=== PATIENT | male | born 1960 | race Caucasian/White ===

== ENCOUNTER 2019-11-13 17:43 | Emergency (ER) | payer MEDICAID ==
[~2019-11-13] VITALS: Ht 172.7 cm; Wt 54.4 kg
[2019-11-13 17:49] VITALS: BP 151/102
[2019-11-13 18:17] LABS: Basophils # (auto) 0.1 10 ^3/uL (0-0.2); Basophils % (auto) 1.4 % (0.0-2.0); Eosinophils # (auto) 0.1 10 ^3/uL (0-0.8); Eosinophils % (auto) 1.2 % (0.0-7.0); Hemoglobin 13.1 g/dL (13.5-17.5); Lymphocytes # (auto) 1.1 10 ^3/uL (0.4-5.4); Lymphocytes % (auto) 19.9 % (10.0-50.0); Mean Corpuscular Hemoglobin 31.8 pg (28.0-32.0); Mean Corpuscular Hgb Conc. 34.5 g/dL (32.0-36.0); Mean Corpuscular Volume 92.4 fL (80.0-100.0); Monocytes # (auto) 0.4 10 ^3/uL (0-1.3); Monocytes % (auto) 7.8 % (0.0-12.0); Neutrophils # (auto) 3.9 10 ^3/uL (1.6-8.6); Neutrophils % (auto) 69.7 % (37.0-80.0); Nucleated Red Blood Cells % 0.1 %; Platelet Count (auto) 286 10^3/uL (140-450); Red Blood Cells 4.11 10^6/uL (4.5-5.90); Red Cell Distribution Width 13.5 % (11.8-14.3); White Blood Cell 5.6 10^3/uL (4.4-10.8)
[2019-11-13] MEDS ORDERED: cefTRIAXone 1GM/50ML D5W 50 ML IV ONE (18:30)
[2019-11-13] MEDS ORDERED: SODIUM CHLORIDE 0.9% 1,000 ML IV ONE (18:30)
[2019-11-13 18:33] LABS: Alanine Aminotransferase 19 U/L (16-61); Anion Gap 3 (5-15); Aspartate Aminotransferase 5 U/L (15-37); BUN/Creatinine Ratio 9.8; Blood Urea Nitrogen 12 mg/dL (7-18); Calcium 8.4 mg/dL (8.5-10.1); Carbon Dioxide 30 mmol/L (21-32); Chloride 105 mmol/L (98-107); GFR African American 79 mL/min; GFR Non-African American 65 mL/min; Glucose 274 mg/dL (74-106); Potassium 4.5 mmol/L (3.5-5.1); Sodium 138 mmol/L (136-145)
[2019-11-13 18:37] LABS: Alkaline Phosphatase 150 U/L (45-117); Bilirubin, Total 0.6 mg/dL (0.2-1.0); Total Protein 6.1 g/dL (6.4-8.2)
[2019-11-13] MEDS ORDERED: IPRATROPIUM BROM 0.5 MG/2.5ML INH SOL NEB ONE (19:00)
[2019-11-13] MEDS ORDERED: ALBUTEROL SULF 2.5 MG/0.5ML(0.5%) NEB SOLN NEB ONE (19:00)
[2019-11-13] MEDS ORDERED: cefTRIAXone W LIDOCAINE 1 GM IM IM ONE (20:15)
[2019-11-22] MEDS ORDERED: FURO40TA4 PO (13:56)
[2019-11-22] MEDS ORDERED: FAM20T PO (13:56)
[2019-11-22] MEDS ORDERED: LEVO750T2 PO (13:56)
[2019-11-22] MEDS ORDERED: MET25T PO (13:56)
[2019-11-22] MEDS ORDERED: SACU1TAB PO (13:56)
[2019-11-22] MEDS ORDERED: ASP81EC PO (13:56)
[2019-11-22] MEDS ORDERED: NICO14DI9 TD (13:56)
[2019-11-23] MEDS ORDERED: NIC21P TOP (16:01)
== END 2019-11-13 20:58 | disposition home or self-care (01) ==
LOC: ER 17:54
DX: J18.9 Pneumonia, unspecified organism (principal); J20.9 Acute bronchitis, unspecified; J44.0 Chronic obstructive pulmonary disease with (acute) lower respiratory infection; S80.812A Abrasion, left lower leg, initial encounter; E11.9 Type 2 diabetes mellitus without complications; E78.5 Hyperlipidemia, unspecified; I10 Essential (primary) hypertension; X58.XXXA Exposure to other specified factors, initial encounter; Y93.89 Activity, other specified; Y92.89 Other specified places as the place of occurrence of the external cause; Y99.8 Other external cause status
CPT/HCPCS: 36415; 71045; 80053; 83880; 84484; 85025; 87040; 93005; 94640; 99285; J0696; J7644

== ENCOUNTER 2019-11-18 11:34 | Inpatient (IN) | payer MEDICAID ==
[~2019-11-18] VITALS: Ht 172.7 cm; Wt 58.3 kg
[2019-11-18] MEDS ORDERED: SODIUM CHLORIDE 0.9% 1,000 ML IV ONE (11:38)
[2019-11-18] MEDS ORDERED: methylPREDNISolone SOD SUCC 125 MG/2 ML VL IV ONE (11:45)
[2019-11-18] MEDS ORDERED: IPRATROPIUM BROM 0.5 MG/2.5ML INH SOL NEB ONE (11:45)
[2019-11-18] MEDS ORDERED: levoFLOXacin 500MG 100 ML IV ONE (11:45)
[2019-11-18] MEDS ORDERED: ALBUTEROL SULF 2.5 MG/0.5ML(0.5%) NEB SOLN NEB ONE (11:45)
[2019-11-18 12:17] LABS: Basophils # (auto) 0.1 10 ^3/uL (0-0.2); Basophils % (auto) 0.7 % (0.0-2.0); Eosinophils # (auto) 0.1 10 ^3/uL (0-0.8); Eosinophils % (auto) 1.6 % (0.0-7.0); Hematocrit 40.1 % (41.0-53.0); Hemoglobin 13.5 g/dL (13.5-17.5); Lymphocytes # (auto) 1.5 10 ^3/uL (0.4-5.4); Lymphocytes % (auto) 21.3 % (10.0-50.0); Mean Corpuscular Hemoglobin 31.7 pg (28.0-32.0); Mean Corpuscular Hgb Conc. 33.7 g/dL (32.0-36.0); Mean Corpuscular Volume 94.2 fL (80.0-100.0); Monocytes # (auto) 0.5 10 ^3/uL (0-1.3); Monocytes % (auto) 7.2 % (0.0-12.0); Neutrophils % (auto) 69.2 % (37.0-80.0); Nucleated Red Blood Cells % 0.1 %; Platelet Count (auto) 240 10^3/uL (140-450); Red Blood Cells 4.26 10^6/uL (4.5-5.90); White Blood Cell 7.2 10^3/uL (4.4-10.8)
[2019-11-18 13:12] LABS: Albumin 2.8 g/dL (3.4-5.0); Potassium 4.2 mmol/L (3.5-5.1)
[2019-11-18 13:17] LABS: BUN/Creatinine Ratio 13.5; Bilirubin, Total 0.5 mg/dL (0.2-1.0); Total Protein 6.1 g/dL (6.4-8.2)
[2019-11-18 13:19] LABS: Urine Bacteria NONE SEEN /hpf (None Seen); Urine Blood Negative /uL (Negative); Urine Specific Gravity 1.006 (1.001-1.035); Urine WBC <1 /hpf (0 - 3)
[2019-11-18] MEDS ORDERED: LABETALOL HCL 5 MG/ML 4ML SYRINGE IV ONE (13:30)
[2019-11-18] MEDS ORDERED: LORazepam 2MG/ML-1ML VIAL IV ONE (13:30)
[2019-11-18] MEDS ORDERED: FUROSEMIDE 40 MG/4 ML VIAL IV ONE (14:45)
[2019-11-18] MEDS ORDERED: IOHEXOL 350 MG/ML 100ML IJ ONE (14:46)
[2019-11-18] MEDS ORDERED: ONDANSETRON HCL 4 MG/2 ML VIAL IV PRN (16:45)
[2019-11-18] MEDS ORDERED: DEXTROSE (50%) 50ML SYRG IV PRN (16:45)
[2019-11-18] MEDS ORDERED: NITROGLYCERIN 0.4 MG SL TAB SL PRN (16:45)
[2019-11-18] MEDS ORDERED: ACETAMINOPHEN 500 MG TAB PO PRN (16:45)
[2019-11-18] MEDS ORDERED: MORPHINE SULF INJ 2 MG/ML SYRINGE 1ML IV PRN (16:45)
[2019-11-18] MEDS ORDERED: hydrALAZINE HCL 20 MG/ML VL IV PRN (16:45)
[2019-11-18] MEDS: ACCU-CHEK COMFORT CURVE STRIP VI SCH ×2 (18:52→22:00)
[2019-11-18] MEDS: InsuLIN REG 1unit/0.01ml Soln (100units/ml) SC SCH ×2 (18:57→22:00)
[2019-11-18] MEDS: HYDROcodone-ACET 5/325MG TAB PO PRN (19:05)
[2019-11-18 20:00] VITALS: BP 143/92
--- NOTE | 2019-11-18 20:00 | NUR ---
Telemetry admit from [facility] admitted to Telemetry unit. Patient oriented to Nadya ChaseRN primary RN, unit, room, bed, and unit policies regarding patient care and visiting hours. Patient now on continuous telemetry monitoring, tele box #54 and telemetry reading on arrival to unit is NSR. No acute S/S of distress or pain noted. Patient placed on 2L bedside oxygen via nasal cannula, weighed by bedscale and encouraged to call if they need something. All questions and concerns addressed, patient verbalized understanding. Bed in lowest locked position, side rails up x2, call light within reach. Will continue to monitor every hour and as needed.
--- NOTE | 2019-11-18 21:30 | NUR ---
Respiratory note: AT BEDSIDE TO ASSESS WITH LEAD RT Rayshawn GONG. PT BS ARE CLEAR/ FINE CRACKLES IN BASES. PT EXPRESSES HE IS HAVING TROUBLE BREATHING. POX 94-96% ON 2LPM NC. HR IN 80S, RR 18-22. WILL COMMUNICATE FINDINGS WITH ELIZABETH SANTIAGO.
--- NOTE | 2019-11-18 21:34 | NUR ---
Respiratory note: HOSPITALIST PAGED AT THIS TIME.
--- NOTE | 2019-11-18 21:36 | NUR ---
Respiratory note: NEW ORDERS GIVEN BY HOSPITALIST DR. JOHNSON. WILL PLACE AND CARRY OUT NE ORDERS. WILL COMMUNICATE WITH ELIZABETH SANTIAGO.
[2019-11-18] MEDS ORDERED: IPRATROPIUM BROM 0.5 MG/2.5ML INH SOL ONE (21:45)
[2019-11-18] MEDS ORDERED: ALBUTEROL SULF 2.5 MG/0.5ML(0.5%) NEB SOLN ONE (21:45)
--- NOTE | 2019-11-18 21:49 | NUR ---
Respiratory note: PRN MED NEB TX ADMINISTERED.
[2019-11-18] MEDS: METOPROLOL TARTRATE 25 MG TAB PO SCH (22:00)
[2019-11-18] MEDS ORDERED: ATORVASTATIN 20 MG TAB PO SCH (22:00)
[2019-11-18] MEDS: GABAPENTIN 100 MG CAP PO SCH (22:00)
[2019-11-18 22:16] VITALS: BP 114/52
[2019-11-18] MEDS: MORPHINE SULF INJ 2 MG/ML SYRINGE 1ML IV PRN (23:00)
[2019-11-19] MEDS ORDERED: METF-370 PO (00:33)
[2019-11-19] MEDS ORDERED: GABA100C9 PO (00:33)
[2019-11-19 05:00] VITALS: BP 123/95
[2019-11-19 06:29] LABS: Basophils # (auto) 0 10 ^3/uL (0-0.2); Basophils % (auto) 0.1 % (0.0-2.0); Eosinophils # (auto) 0 10 ^3/uL (0-0.8); Hematocrit 39.3 % (41.0-53.0); Hemoglobin 13.6 g/dL (13.5-17.5); Lymphocytes # (auto) 0.7 10 ^3/uL (0.4-5.4); Lymphocytes % (auto) 5.2 % (10.0-50.0); Mean Corpuscular Hemoglobin 31.9 pg (28.0-32.0); Mean Corpuscular Hgb Conc. 34.5 g/dL (32.0-36.0); Mean Corpuscular Volume 92.5 fL (80.0-100.0); Monocytes # (auto) 0.7 10 ^3/uL (0-1.3); Monocytes % (auto) 5.4 % (0.0-12.0); Neutrophils # (auto) 11.6 10 ^3/uL (1.6-8.6); Neutrophils % (auto) 89.3 % (37.0-80.0); Nucleated Red Blood Cells % 0.1 %; Platelet Count (auto) 276 10^3/uL (140-450); Red Blood Cells 4.25 10^6/uL (4.5-5.90); Red Cell Distribution Width 13.7 % (11.8-14.3)
[2019-11-19] MEDS: ACCU-CHEK COMFORT CURVE STRIP VI SCH ×4 (06:29→22:10)
[2019-11-19] MEDS: GABAPENTIN 100 MG CAP PO SCH (06:29)
[2019-11-19] MEDS: InsuLIN REG 1unit/0.01ml Soln (100units/ml) SC SCH ×4 (06:32→22:10)
[2019-11-19 06:43] LABS: BUN/Creatinine Ratio 20.4; Potassium 3.7 mmol/L (3.5-5.1)
[2019-11-19] MEDS: HYDROcodone-ACET 5/325MG TAB PO PRN ×2 (06:58→20:31)
[2019-11-19] MEDS: ALBUTEROL SULF 2.5 MG/0.5ML(0.5%) NEB SOLN NEB PRN ×2 (07:09→12:50)
[2019-11-19] MEDS: IPRATROPIUM BROM 0.5 MG/2.5ML INH SOL NEB PRN ×2 (07:09→12:50)
--- NOTE | 2019-11-19 07:50 | NUR ---
Patient sitting up in bed, wheezing noted, on O2 at 3 LPM. Patient awake, oriented x4. Straight cane (from home) at bedside.
[2019-11-19 08:57] VITALS: BP 121/77
[2019-11-19] MEDS ORDERED: LISINOPRIL 10 MG TAB PO SCH (10:00)
[2019-11-19] MEDS ORDERED: FUROSEMIDE 20 MG/2 ML VIAL IV SCH (10:00)
[2019-11-19] MEDS: ASPirin-EC 81 mg tab PO SCH (10:17)
[2019-11-19] MEDS: FAMOTIDINE 20 MG TAB PO SCH (10:17)
[2019-11-19] MEDS: METOPROLOL TARTRATE 25 MG TAB PO SCH ×2 (10:17→22:09)
[2019-11-19] MEDS: OLANZapine 5 MG TAB PO SCH (10:18)
--- NOTE | 2019-11-19 11:15 | NUR ---
Dr. Lopes at bedside. ordered to complete the Med Rec. Patient could not remember all the medications he takes at home. 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 Dr. Lopes to put in order for Drug Screen, Nicotine patch.
--- NOTE | 2019-11-19 11:20 | NUR ---
About 800 ml of clear, yellowish urine noted in the urinal at bedside.
[2019-11-19] MEDS ORDERED: OLAN1TAB7 PO (11:23)
--- NOTE | 2019-11-19 11:25 | NUR ---
Patient called a family member, asking her to look for his medications list at home.
--- NOTE | 2019-11-19 11:30 | NUR ---
WOUND CARE NOTE: WOUND CONSULT ORDERED FOR PATIENT D/T "LEG WOUND". WOUND PHOTO TAKEN UPON ADMIT BY BEDSIDE NURSE FOR REFERENCE. PATIENT IS NOTED TO HAVE TWO SMALL BLOOD BLISTERS TO THE LEFT CALF. NO OPEN OR DRAINING WOUNDS NOTED. NO WOUND CARE MONITORING NEEDED.
--- NOTE | 2019-11-19 11:35 | NUR ---
Specimen bottle at bedside for urine specimen collection.
--- NOTE | 2019-11-19 11:45 | NUR ---
Urine specimen sent to Laboratory.
--- NOTE | 2019-11-19 12:00 | NUR ---
Received a call from Laboratory that patient is MRSA Nares (+). Informed Charge Nurse Sarah. Patient to be transferred to Room 282 for Isolation Precautions.
--- NOTE | 2019-11-19 12:05 | NUR ---
Paged Dr. Lopes.
--- NOTE | 2019-11-19 12:08 | NUR ---
Dr. Lopes called back. made aware patient is MRSA Nares (+), will be transferred to Room 282 for Isolation Precautions, urine specimen already sent for Drug Screen. Informed Dr. Lopes that she has not put in the order for Nicotine patch yet.
--- NOTE | 2019-11-19 12:12 | NUR ---
Assisted the patient to get up and walk to the bathroom. Patient asked for his straight cane. Patient on O2 at 3 LPM via long nasal cannula.
[2019-11-19 12:29] LABS: Alcohol, Urine < 3.0 mg/dL (0-5); Amphetamine Screen, Urine POSITIVE (NEGATIVE); Barbiturate Scree,Urine NEGATIVE (NEGATIVE); Benzodiazephine Screen, Urine NEGATIVE (NEGATIVE); Cannabinoid Screen, Urine NEGATIVE (NEGATIVE); Cocaine Screen, Urine NEGATIVE (NEGATIVE); Opiate Scree,Urine NEGATIVE (NEGATIVE); Phencyclidine Screen, Urine NEGATIVE (NEGATIVE)
--- NOTE | 2019-11-19 12:30 | NUR ---
Transferred the patient via wheelchair from Room 286A to Room 282. Patient on O2 at 3 LPM via nasal cannula, on disposable mask.
--- NOTE | 2019-11-19 12:39 | NUR ---
Paged the Respiratory Therapist for patient's PRN Q4 breathing treatment.
[2019-11-19 13:00] VITALS: BP_SYST 117; BP_SYST 123; BP_DIAS 73; BP_DIAS 76
--- NOTE | 2019-11-19 13:06 | NUR ---
RT came over, recommends if doctor will order a scheduled breathing treatment. Patient on breathing treatment PRN Q4 only. Paged Dr. Lopes. Waiting for MD to call back.
--- NOTE | 2019-11-19 13:35 | NUR ---
Patient was screaming, stated he's having bad cramps on his left foot. Patient said he could not straighten his left foot, requested that I press his left foot to straighten it. Press the left foot straight slowly. Patient stated it's getting to feel better. Released the patient's left foot slowly. Instructions given to press the call light if he has foot cramps again.
[2019-11-19] MEDS ORDERED: NICOTINE 21MG/24 HR TOPICAL PATCH TD ONE (13:45)
[2019-11-19] MEDS ORDERED: levoFLOXacin 750MG 150 ML IV ONE (14:00)
--- NOTE | 2019-11-19 14:22 | NUR ---
Pt is an alert and oriented 59 yo male. SS consult to discuss living arrangements. Pt stated he lives with his family but wants to move. Before assessment could be completed pt stated he needed to go to the bathroom and asked if I could come back. SS consult to be completed when pt is available. Addendum: 11/19/19 at 1423 by MERISSA LANG Amended: Links added.
[2019-11-19 14:57] VITALS: BP 117/76
[2019-11-19 14:58] LABS: Hepatitis B Surface Antibody Positive
[2019-11-19] MEDS ORDERED: NICOTINE 14 MG/24HR TOPICAL PATCH TD ONE (15:00)
--- NOTE | 2019-11-19 15:00 | NUR ---
CHIO Pina came over for patient's Cardiology Consult, put in new orders. Silvana made aware the RT recommends scheduled breathing treatment but the only order was PRN Q4. Dr. Lopes was paged but has not called back yet. Silvana to put in orders for scheduled breathing treatment.
[2019-11-19 15:36] LABS: Hepatitis A Total Antibody Positive
[2019-11-19 15:45] LABS: Hepatitis B Core Total AB Negative; Hepatitis B Surface Antigen Negative (Negative)
[2019-11-19 15:48] LABS: Hepatitis C Antibody Positive (Negative)
--- NOTE | 2019-11-19 15:50 | NUR ---
Hep C antibody = Positive *A as per Microbiology.
--- NOTE | 2019-11-19 15:56 | NUR ---
Paged Dr. Lopes. Waiting for MD to call back.
--- NOTE | 2019-11-19 16:00 | NUR ---
About 800 ml of clear, yellowish urine emptied from the urinal.
[2019-11-19 16:01] LABS: Magnesium 1.7 mg/dL (1.6-2.6)
--- NOTE | 2019-11-19 16:10 | NUR ---
Dr. Lopes called back. made aware patient is Hep C antibody = Positive*A as per Microbiology.
[2019-11-19 16:48] VITALS: BP 123/87
[2019-11-19] MEDS: FUROSEMIDE 40 MG/4 ML VIAL IV SCH (17:20)
--- NOTE | 2019-11-19 17:30 | NUR ---
About 300 ml of clear, yellowish urine emptied from the urinal.
--- NOTE | 2019-11-19 18:46 | NUR ---
NPO after midnight, for Stress Test tomorrow, Tuesday as per CHIO Pina for Cardiology.
--- NOTE | 2019-11-19 20:50 | NUR ---
Opening Shift Note Assumed care of patient, awake and alert. Patient complained of pain, will administer pain medication PRN. Instructed on POC and to call for assist PRN, will continue to monitor for changes Q1hr and PRN.
[2019-11-19] MEDS: ALBUTEROL SULF 2.5 MG/0.5ML(0.5%) NEB SOLN NEB SCH (21:09)
[2019-11-19] MEDS: IPRATROPIUM BROM 0.5 MG/2.5ML INH SOL NEB SCH (21:09)
[2019-11-19] MEDS ORDERED: INSULIN LANTUS (GLARGINE) 1 /0.01ml (100units/ml) SC SCH (22:00)
[2019-11-19] MEDS: MUPIROCIN 2% OINT 15gm or 22gm EACHNOSTRI SCH (22:08)
[2019-11-19 22:55] VITALS: BP 104/75
[2019-11-20] VITALS (7 sets, daily range): BP systolic 95–148; BP diastolic 63–80
--- NOTE | 2019-11-20 | NUR ---
IV insertion IV access obtained, via clean sterile technique by inserting 20 gauge catheter at LFA after 2 attempts. IV secured properly. No trauma to site. Patient tolerated well.
--- NOTE | 2019-11-20 03:22 | NUR ---
IV removal Patient complain of IV site pain. Patient said, "it hurts too much". IV DC'd with clean sterile technique, catheter fully intact. Pressure dressing applied to site. Patient tolerated well. Offer the patient to do second IV for stress test but refused at the moment. Patient said "I rather do it in the morning to get more sleep". Will endorse to day shift nurse.
[2019-11-20] MEDS: IPRATROPIUM BROM 0.5 MG/2.5ML INH SOL NEB PRN (03:57)
[2019-11-20] MEDS: ALBUTEROL SULF 2.5 MG/0.5ML(0.5%) NEB SOLN NEB PRN (03:57)
[2019-11-20 05:46] LABS: Basophils # (auto) 0 10 ^3/uL (0-0.2); Basophils % (auto) 0.6 % (0.0-2.0); Eosinophils # (auto) 0.1 10 ^3/uL (0-0.8); Eosinophils % (auto) 1.4 % (0.0-7.0); Hematocrit 43.3 % (41.0-53.0); Hemoglobin 14.9 g/dL (13.5-17.5); Lymphocytes % (auto) 26.4 % (10.0-50.0); Mean Corpuscular Hemoglobin 31.9 pg (28.0-32.0); Mean Corpuscular Hgb Conc. 34.4 g/dL (32.0-36.0); Mean Corpuscular Volume 92.7 fL (80.0-100.0); Monocytes # (auto) 0.5 10 ^3/uL (0-1.3); Monocytes % (auto) 6.8 % (0.0-12.0); Neutrophils # (auto) 4.9 10 ^3/uL (1.6-8.6); Neutrophils % (auto) 64.8 % (37.0-80.0); Nucleated Red Blood Cells % 0.1 %; Platelet Count (auto) 274 10^3/uL (140-450); Red Blood Cells 4.67 10^6/uL (4.5-5.90); Red Cell Distribution Width 13.9 % (11.8-14.3); White Blood Cell 7.5 10^3/uL (4.4-10.8)
[2019-11-20 06:04] LABS: Calcium 8.8 mg/dL (8.5-10.1); Potassium 3.4 mmol/L (3.5-5.1)
[2019-11-20 06:07] LABS: BUN/Creatinine Ratio 24.6
[2019-11-20] MEDS: ALBUTEROL SULF 2.5 MG/0.5ML(0.5%) NEB SOLN NEB SCH ×3 (06:15→22:25)
[2019-11-20] MEDS: IPRATROPIUM BROM 0.5 MG/2.5ML INH SOL NEB SCH ×3 (06:15→22:25)
[2019-11-20] MEDS: ACCU-CHEK COMFORT CURVE STRIP VI SCH ×4 (06:25→22:10)
[2019-11-20] MEDS: InsuLIN REG 1unit/0.01ml Soln (100units/ml) SC SCH ×4 (06:25→22:09)
[2019-11-20] MEDS: FUROSEMIDE 40 MG/4 ML VIAL IV SCH ×2 (06:25→18:00)
[2019-11-20] MEDS: HYDROcodone-ACET 5/325MG TAB PO PRN ×2 (06:26→22:10)
--- NOTE | 2019-11-20 08:00 | NUR ---
OPENING SHIFT NOTE ASSUMED CARE OF PATIENT AWAKE AND ALERT. NO S/S OF DISTRESS NOTED OR COMPLAINTS OF PAIN. PATIENT UPDATED ON POC FOR THE DAY AND ALL QUESTIONS ANSWERED. BED IS IN LOWEST, LOCKED POSITION WITH SIDE RAILS UP X2 AND CALL LIGHT WITHIN REACH. WILL CONTINUE TO MONITOR Q1H AND PRN.
[2019-11-20] MEDS ORDERED: ADENOSINE 51 MG in GIVE UN-DILUTED 0 ML IV STA (08:16)
[2019-11-20] MEDS ORDERED: FUROSEMIDE 40 MG/4 ML VIAL IV SCH (10:00)
[2019-11-20] MEDS ORDERED: NICOTINE 21MG/24 HR TOPICAL PATCH TD SCH (10:00)
[2019-11-20] MEDS: ASPirin-EC 81 mg tab PO SCH (10:00)
--- NOTE | 2019-11-20 10:56 | NUR ---
Faxed life vest order/clinical information to [facility].
[2019-11-20] MEDS: MUPIROCIN 2% OINT 15gm or 22gm EACHNOSTRI SCH ×2 (12:14→22:06)
[2019-11-20] MEDS: OLANZapine 5 MG TAB PO SCH (12:15)
[2019-11-20] MEDS: POTASSIUM CHL 20 Meq TABLET PO SCH (12:15)
[2019-11-20] MEDS: METOPROLOL TARTRATE 25 MG TAB PO SCH ×2 (12:15→22:08)
[2019-11-20] MEDS: levoFLOXacin 750MG 150 ML IV SCH (12:15)
[2019-11-20] MEDS: FAMOTIDINE 20 MG TAB PO SCH (12:15)
[2019-11-20] MEDS: NICOTINE 14 MG/24HR TOPICAL PATCH TD SCH (12:16)
--- NOTE | 2019-11-20 15:35 | NUR ---
H1N1 RECEIVED CALLED FROM LAB REGARDING SEND OUT LAB. PER LAB THEY SENT THE WRONG SAMPLE TO [facility]. ANOTHER H1N1 SWAB TAKEN AND SENT TO LAB.
--- NOTE | 2019-11-20 19:20 | NUR ---
Opening Shift Note Assumed care of patient, awake and alert. No S/S of distress/SOB. Patient complained of chronic shoulder pain but did not want PRN pain medication. Patient was wearing life vest and is aware of tomorrow procedure [facility]. Reminded patient that he needs to be NPO after midnight for tomorrows procedure. Instructed on POC and to call for assist PRN, will continue to monitor for changes Q1hr and PRN.
[2019-11-20 19:57] LABS: INR 1.13 (0.9-1.15)
[2019-11-20] MEDS: SACUBITRIL-VALSARTAN 24mg/26mg TAB PO SCH (22:07)
[2019-11-20] MEDS: INSULIN LANTUS (GLARGINE) 1 /0.01ml (100units/ml) SC SCH (22:09)
[2019-11-21] MEDS ORDERED: SODIUM CHLORIDE 0.9% 500 ML IV SCH (00:01)
[2019-11-21 05:30] VITALS: BP 109/79
[2019-11-21 05:51] LABS: Basophils # (auto) 0.1 10 ^3/uL (0-0.2); Basophils % (auto) 0.7 % (0.0-2.0); Eosinophils # (auto) 0.2 10 ^3/uL (0-0.8); Eosinophils % (auto) 2.1 % (0.0-7.0); Hematocrit 46.9 % (41.0-53.0); Hemoglobin 16.3 g/dL (13.5-17.5); Lymphocytes # (auto) 2.1 10 ^3/uL (0.4-5.4); Lymphocytes % (auto) 27.2 % (10.0-50.0); Mean Corpuscular Hemoglobin 31.9 pg (28.0-32.0); Mean Corpuscular Hgb Conc. 34.7 g/dL (32.0-36.0); Mean Corpuscular Volume 92.1 fL (80.0-100.0); Monocytes # (auto) 0.6 10 ^3/uL (0-1.3); Monocytes % (auto) 7.6 % (0.0-12.0); Neutrophils # (auto) 4.7 10 ^3/uL (1.6-8.6); Neutrophils % (auto) 62.4 % (37.0-80.0); Platelet Count (auto) 315 10^3/uL (140-450); Red Blood Cells 5.09 10^6/uL (4.5-5.90); Red Cell Distribution Width 13.9 % (11.8-14.3); White Blood Cell 7.6 10^3/uL (4.4-10.8)
[2019-11-21] MEDS: IPRATROPIUM BROM 0.5 MG/2.5ML INH SOL NEB SCH ×3 (05:52→21:56)
[2019-11-21] MEDS: ALBUTEROL SULF 2.5 MG/0.5ML(0.5%) NEB SOLN NEB SCH ×3 (05:52→21:56)
[2019-11-21] MEDS: FUROSEMIDE 40 MG/4 ML VIAL IV SCH (06:00)
[2019-11-21 06:14] LABS: INR 1.07 (0.9-1.15); Partial Thromboplastin Time 27.1 sec (23.64-32.05)
[2019-11-21] MEDS: InsuLIN REG 1unit/0.01ml Soln (100units/ml) SC SCH ×4 (06:15→22:06)
[2019-11-21] MEDS: MORPHINE SULF INJ 2 MG/ML SYRINGE 1ML IV PRN ×3 (06:16→21:14)
[2019-11-21] MEDS: ACCU-CHEK COMFORT CURVE STRIP VI SCH ×4 (06:16→22:05)
[2019-11-21 06:21] LABS: BUN/Creatinine Ratio 25.9; Calcium 8.6 mg/dL (8.5-10.1); Potassium 3.6 mmol/L (3.5-5.1)
[2019-11-21 08:00] VITALS: BP 109/79
--- NOTE | 2019-11-21 08:15 | NUR ---
HEALTH AND FITNESS PROFESSOR PATIENT BROUGHT DOWN TO HEALTH AND FITNESS PROFESSOR BY FLOOR STAFF WITHOUT INCIDENT.
[2019-11-21 09:00] VITALS: BP 114/76
--- NOTE | 2019-11-21 09:40 | NUR ---
pt in apparent respiratory distress O2 Sat at 100% however, patient moaning and states, "I can't breath". Diminished lungs throughout. Hospitalist paged. Nirmala josue. Addendum: 11/21/19 at 1005 by Nanci Hoskins RN syst B/P 80/51
[2019-11-21] MEDS: IPRATROPIUM BROM 0.5 MG/2.5ML INH SOL NEB PRN (09:55)
[2019-11-21] MEDS: ALBUTEROL SULF 2.5 MG/0.5ML(0.5%) NEB SOLN NEB PRN (09:55)
--- NOTE | 2019-11-21 09:56 | NUR ---
R.T. at bedside. breathing treatment initiated.
[2019-11-21] MEDS: MUPIROCIN 2% OINT 15gm or 22gm EACHNOSTRI SCH ×2 (10:00→22:04)
[2019-11-21] MEDS: FAMOTIDINE 20 MG TAB PO SCH (10:00)
[2019-11-21] MEDS: METOPROLOL TARTRATE 25 MG TAB PO SCH ×2 (10:00→22:04)
[2019-11-21] MEDS: ASPirin-EC 81 mg tab PO SCH (10:00)
[2019-11-21] MEDS: levoFLOXacin 750MG 150 ML IV SCH (10:00)
[2019-11-21] MEDS: POTASSIUM CHL 20 Meq TABLET PO SCH (10:00)
[2019-11-21] MEDS: SACUBITRIL-VALSARTAN 24mg/26mg TAB PO SCH ×2 (10:00→22:04)
[2019-11-21] MEDS: OLANZapine 5 MG TAB PO SCH (10:00)
[2019-11-21] MEDS: NICOTINE 14 MG/24HR TOPICAL PATCH TD SCH (10:00)
--- NOTE | 2019-11-21 10:05 | NUR ---
B/P improved B/P 110/79 after breathing treatment. pt resting comfortably. Dr. Pena at bedside.
[2019-11-21] MEDS ORDERED: IODIXANOL 320MG/ML 100ML BTL IV ONE (12:06)
[2019-11-21] MEDS ORDERED: LIDOCAINE 2%HCL (LOCAL ANESTH.) INJ 20ML MDV ONE (12:06)
[2019-11-21] MEDS ORDERED: ANGIOMAX 250 MG VIAL IV ONE (12:09)
[2019-11-21] MEDS ORDERED: MIDAZOLAM HCL 1MG/1ML-2 ML VIAL ONE (12:10)
[2019-11-21] MEDS ORDERED: fentaNYL CITRATE 100 MCG/2 ML VL ONE (12:10)
[2019-11-21] MEDS ORDERED: SODIUM CHL 0.9% 0 ML ONE (12:10)
[2019-11-21] MEDS ORDERED: diphenhdrAMINE HCL 50 MG/1 ML VL ONE (12:12)
--- NOTE | 2019-11-21 13:40 | NUR ---
BACK TO UNIT RECEIVED PATIENT BACK ON THE UNIT AFTER VERBAL REPORT FROM RN TRANSPLANT. PATIENT FOUND TO BE IN MODERATE DISTRESS, WRITHING IN PAIN, AND UNABLE TO FOLLOW COMMANDS TO STAY STILL. RIGHT GROIN SITE ASSESSED AND FOUND TO BE BENIGN, NO OOZING, SITE IS SOFT. BP IS 110/56. WILL FOLLOW UP WITH DR GREEN FOR ANY NEW ORDERS AND CONTINUE TO MONITOR.
[2019-11-21] MEDS ORDERED: KETOROLAC TROMETH 30 MG/ML 1ML VIAL IV ONE (13:45)
--- NOTE | 2019-11-21 13:50 | NUR ---
CATH SITE CATH SITE REASSESSED AND FOUND TO BE NONTENDER AND SOFT WITH NO OOZING.
--- NOTE | 2019-11-21 14:00 | NUR ---
POST CATH VITALS 104/66 83/58 75/48 64/42 90/48 DR GREEN MADE AWARE OF PATIENT'S HYPOTENSION AND COMPLAINT OF 10/10 BACK PAIN. NEW ORDERS RECEIVED, WILL CARRY OUT AND CONTINUE CARE.
--- NOTE | 2019-11-21 16:30 | NUR ---
BP AFTER A 250ML BOLUS PATIENT'S BP IS NOW 120/84.
[2019-11-21 17:00] VITALS: BP 126/83
[2019-11-21] MEDS ORDERED: SODIUM CHLORIDE 0.9% 250 ML IV ONE (17:30)
--- NOTE | 2019-11-21 18:20 | NUR ---
PHARMACY RECEIVED CALL FROM PHARMACY REGARDING MEDICATION REPATHA. [facility] REPA[facility] PUT IN ORDER YESTERDAY D/T PATIENT ALLERGIES TO [facility]. DISCUSSED MED ORDER WITH PHARMACIST YESTERDAY. PHARMACIST MARK CALLED ME AT 1820 TODAY AND ASKED ME IF IT WAS A HOME MED. I REPLIED THAT IT WAS NOT AND IT WAS A NEW ORDER FROM YESTERDAY. HE ASKS ME "WELL WHERE AM I SUPPOSED TO GET THIS MED?" I REQUESTED CLARIFICATION ON HIS QUESTION I DIDN'T UNDERSTAND WHAT HE MEANT. HE TELLS ME THE HOSPITAL DOESN'T HAVE THIS MED IN STOCK AND WANTS ME TO TELL HIM WHERE HE IS SUPPOSED TO FIND IT. I REPLY THAT I DO NOT KNOW. HE THEN TELLS ME TO CALL [facility] AND TELL HER WE DO NOT HAVE THE MED TO WHICH I ASKED WHY HE WAS UNABLE TO CALL HER HIMSELF. HE IGNORES MY INQUIRY AND REPEATS THAT I NEED TO CALL AND LET HER KNOW WE CANNOT DISPENSE THIS MEDICATION BECAUSE IT IS "RARE". WILL PASS MESSAGE ALONG TO NOC RN.
[2019-11-21] MEDS ORDERED: EVOLOCUMAB 140 MG/ML SC SCH (19:30)
--- NOTE | 2019-11-21 19:35 | NUR ---
Opening Shift Note Assumed care of patient, awake and alert x4. No S/S of distress/SOB or pain. Call light is within reach, side rails up x2, bed is in lowest position. Life vest is on person. Instructed on POC and to call for assist PRN, will continue to monitor for changes Q1hr and PRN.
[2019-11-21 22:00] VITALS: BP 121/84
--- NOTE | 2019-11-21 22:00 | NUR ---
PHARMACY Called pharmacy, unable to find the Bactroban in patient's cassette. Spoke with Kallie, she said she will send it in the bullet.
[2019-11-21] MEDS: INSULIN LANTUS (GLARGINE) 1 /0.01ml (100units/ml) SC SCH (22:05)
[2019-11-22 05:00] VITALS: BP 117/74
[2019-11-22] MEDS ORDERED: SODIUM CHLORIDE 0.9 % NEB SOLN 3ML NEB ONE (05:39)
[2019-11-22] MEDS: ACCU-CHEK COMFORT CURVE STRIP VI SCH ×4 (06:27→21:46)
[2019-11-22] MEDS: InsuLIN REG 1unit/0.01ml Soln (100units/ml) SC SCH ×4 (06:27→21:45)
[2019-11-22] MEDS: ALBUTEROL SULF 2.5 MG/0.5ML(0.5%) NEB SOLN NEB SCH ×2 (06:31→21:54)
[2019-11-22] MEDS: IPRATROPIUM BROM 0.5 MG/2.5ML INH SOL NEB SCH ×3 (06:31→21:54)
[2019-11-22 06:44] LABS: Calcium 8.5 mg/dL (8.5-10.1); Potassium 4.6 mmol/L (3.5-5.1)
[2019-11-22 06:47] LABS: BUN/Creatinine Ratio 26.2
--- NOTE | 2019-11-22 06:53 | NUR ---
Pharmacy regarding Repatha Spoke with Lulú regarding medication Repatha, she stated this medication is not in the pharmacy, [facility] might [facility] but we won't know until 0900. Will endorse to skinny JOHNSON.
[2019-11-22 07:30] VITALS: BP 117/74
[2019-11-22 09:00] VITALS: BP 121/76
[2019-11-22] MEDS: ASPirin-EC 81 mg tab PO SCH (09:24)
[2019-11-22] MEDS: levoFLOXacin 750MG 150 ML IV SCH (09:24)
[2019-11-22] MEDS: FAMOTIDINE 20 MG TAB PO SCH (09:25)
[2019-11-22] MEDS: OLANZapine 5 MG TAB PO SCH (09:25)
[2019-11-22] MEDS: NICOTINE 14 MG/24HR TOPICAL PATCH TD SCH (09:26)
[2019-11-22] MEDS: FUROSEMIDE 40 MG TAB PO SCH (09:27)
[2019-11-22] MEDS: MORPHINE SULF INJ 2 MG/ML SYRINGE 1ML IV PRN (09:35)
[2019-11-22] MEDS: MUPIROCIN 2% OINT 15gm or 22gm EACHNOSTRI SCH ×2 (09:39→21:48)
[2019-11-22] MEDS: METOPROLOL TARTRATE 25 MG TAB PO SCH ×2 (10:00→21:47)
[2019-11-22] MEDS: SACUBITRIL-VALSARTAN 24mg/26mg TAB PO SCH ×2 (10:00→21:47)
[2019-11-22] MEDS ORDERED: POTASSIUM CHL 20 Meq TABLET PO SCH (10:00)
[2019-11-22 13:00] VITALS: BP 116/74
--- NOTE | 2019-11-22 13:30 | NUR ---
PER DOCTOR GREEN IF PATIENT MRSA COMES BACK NEGATIVE D/C TO SNF.
[2019-11-22] MEDS ORDERED: LEVO750T2 PO (13:56)
[2019-11-22] MEDS ORDERED: FAM20T PO (13:56)
[2019-11-22] MEDS ORDERED: NICO14DI9 TD (13:56)
[2019-11-22] MEDS ORDERED: ASP81EC PO (13:56)
[2019-11-22] MEDS ORDERED: MET25T PO (13:56)
[2019-11-22] MEDS ORDERED: FURO40TA4 PO (13:56)
[2019-11-22] MEDS ORDERED: SACU1TAB PO (13:56)
--- NOTE | 2019-11-22 13:58 | NUR ---
Spoke with Pharmacy regarding Repatha per pharmacy they do not carry this medication. [facility] Repatha. Silvana Cruz KITCHEN UTILITY ASSOCIATE informed that hospital pharmacy doesn't carry repatha. No new orders received.
--- NOTE | 2019-11-22 17:01 | NUR ---
D/C planning Per SS consult for SNF placement for physical therapy. Order was faxed to [facility] for reviewed. Faxed order to [facility], Ted King, Nila Sepulveda, Cristhian Kelley. Per representatives they are unable to accommodate patient needs at the moment due to no male isolation bed available for MRSAS. ELIZABETH Valdes was informed. Notify doctor .
[2019-11-22 17:09] VITALS: BP 117/74
[2019-11-22] MEDS: HYDROcodone-ACET 5/325MG TAB PO PRN ×2 (17:28→23:17)
--- NOTE | 2019-11-22 19:50 | NUR ---
Opening Shift Note Assumed care of patient, awake and alert. No S/S of distress/SOB or pain. Instructed on POC and to call for assist PRN. Bed in lowest position, Bed rails up X2. Fall precautions in place, call light within reach. Will continue to monitor for changes Q1hr and PRN.
[2019-11-22] MEDS: INSULIN LANTUS (GLARGINE) 1 /0.01ml (100units/ml) SC SCH (21:46)
[2019-11-22 22:00] VITALS: BP 112/72
[2019-11-23 05:00] VITALS: BP 120/61
[2019-11-23] MEDS: IPRATROPIUM BROM 0.5 MG/2.5ML INH SOL NEB SCH ×2 (06:05→14:16)
[2019-11-23] MEDS: ALBUTEROL SULF 2.5 MG/0.5ML(0.5%) NEB SOLN NEB SCH ×2 (06:05→14:17)
[2019-11-23] MEDS: ACCU-CHEK COMFORT CURVE STRIP VI SCH ×2 (06:33→11:30)
[2019-11-23] MEDS: InsuLIN REG 1unit/0.01ml Soln (100units/ml) SC SCH ×2 (06:33→12:02)
[2019-11-23 09:00] VITALS: BP 110/70
[2019-11-23] MEDS: ASPirin-EC 81 mg tab PO SCH (09:38)
[2019-11-23] MEDS: FAMOTIDINE 20 MG TAB PO SCH (09:38)
[2019-11-23] MEDS: OLANZapine 5 MG TAB PO SCH (09:38)
[2019-11-23] MEDS: HYDROcodone-ACET 5/325MG TAB PO PRN (09:39)
[2019-11-23] MEDS: NICOTINE 14 MG/24HR TOPICAL PATCH TD SCH (09:39)
[2019-11-23] MEDS: FUROSEMIDE 40 MG TAB PO SCH (09:39)
[2019-11-23] MEDS: SACUBITRIL-VALSARTAN 24mg/26mg TAB PO SCH (09:40)
[2019-11-23] MEDS: MUPIROCIN 2% OINT 15gm or 22gm EACHNOSTRI SCH (09:46)
[2019-11-23] MEDS ORDERED: levoFLOXacin 250 MG TAB PO SCH (10:00)
[2019-11-23] MEDS: METOPROLOL TARTRATE 25 MG TAB PO SCH (11:59)
[2019-11-23 13:00] VITALS: BP 140/89
--- NOTE | 2019-11-23 13:34 | NUR ---
Spoke with [facility] regarding patient MRSA swab sent out yesterday per [facility] mrsa swab is positive. Doctor informed per patient will be d/c home with home health.
--- NOTE | 2019-11-23 15:28 | NUR ---
RECEIVED PHONE CALL FROM MARIA LUZ MEDICAL TERMINOLOGIST PER [facility] VISITING [facility] PHONE NUMBER [phone]. SERVICES TO START WITH IN 24-48 HOURS.
--- NOTE | 2019-11-23 16:00 | NUR ---
Per patient he is staying with his family member Fely phone number to be reached is [phone].
[2019-11-23] MEDS ORDERED: NIC21P TOP (16:01)
--- NOTE | 2019-11-23 16:26 | NUR ---
Discharge instructions given as ordered. Encourage to follow up with PMD as instructed. All questions and concerns addressed. Patient verbalized understanding. Medication reconciliation form completed and copy given to patient. Home medications held in Pharmacy returned to patient, and No needed vaccines given. IV removed with catheter intact, pressure dressing applied. Telemetry unit returned to ICU. Patient taken to vehicle via wheelchair with all personal belongings, accompanied by staff. No distress noted at time of departure.
--- NOTE | 2019-11-23 16:48 | NUR ---
D/C Planning Per consult foe home health safety evaluation, physical therapy, medication management and vitals. Faxed order to [facility] Per Sury with [facility] they cannot accept patient at the moment due to no nurse available. Per Daxa with [facility]:) patient has been accepted and service to start within 24/48hrs upon d.c day. Faxed order to [facility] requesting authorization for NI. Per Doris with [facility] authorization is [id number]. ELIZABETH Valdes was informed of d/c plan. Addendum: 11/23/19 at 1654 by ANKUR JEWELL Amended: Links added.
== END 2019-11-23 16:20 | disposition home health service (06) | DRG 720 ==
LOC: EDBD 11:34 → ER 11:34 → TELE 11:35 → WEST WING 19:37 → TELE-WESTW 11-19 09:04
PROVIDERS: ADMIT Nurse Practitioner Acute Care; ATTEND Internal Medicine
PROC: 4A023N7 Measurement of Cardiac Sampling and Pressure, Left Heart, Percutaneous Approach (ICD-10-PCS; principal; 2019-11-21)
PROC: B2111ZZ Fluoroscopy of Multiple Coronary Arteries using Low Osmolar Contrast (ICD-10-PCS; 2019-11-21)
PROC: B2151ZZ Fluoroscopy of Left Heart using Low Osmolar Contrast (ICD-10-PCS; 2019-11-21)
DX: A41.9 Sepsis, unspecified organism (principal); J96.00 Acute respiratory failure, unspecified whether with hypoxia or hypercapnia; N17.0 Acute kidney failure with tubular necrosis; I50.43 Acute on chronic combined systolic (congestive) and diastolic (congestive) heart failure; R64 Cachexia; E44.0 Moderate protein-calorie malnutrition; J18.9 Pneumonia, unspecified organism; I11.0 Hypertensive heart disease with heart failure; I07.1 Rheumatic tricuspid insufficiency; B19.10 Unspecified viral hepatitis B without hepatic coma; I42.7 Cardiomyopathy due to drug and external agent; J44.0 Chronic obstructive pulmonary disease with (acute) lower respiratory infection; J44.1 Chronic obstructive pulmonary disease with (acute) exacerbation; E78.5 Hyperlipidemia, unspecified; E87.6 Hypokalemia; F17.210 Nicotine dependence, cigarettes, uncomplicated; E11.9 Type 2 diabetes mellitus without complications; I25.10 Atherosclerotic heart disease of native coronary artery without angina pectoris; I16.0 Hypertensive urgency; Z86.73 Personal history of transient ischemic attack (TIA), and cerebral infarction without residual deficits; Z91.19 Patient's noncompliance with other medical treatment and regimen; Z79.4 Long term (current) use of insulin; E78.00 Pure hypercholesterolemia, unspecified; F32.9 Major depressive disorder, single episode, unspecified; F19.10 Other psychoactive substance abuse, uncomplicated; B19.20 Unspecified viral hepatitis C without hepatic coma; F12.90 Cannabis use, unspecified, uncomplicated; T43.625A Adverse effect of amphetamines, initial encounter; Z71.51 Drug abuse counseling and surveillance of drug abuser; Z88.0 Allergy status to penicillin; Z88.5 Allergy status to narcotic agent; Z79.899 Other long term (current) drug therapy; Z79.84 Long term (current) use of oral hypoglycemic drugs
CPT/HCPCS: 36415; 36600; 71045; 71275; 76775; 78452; 80048; 80053; 80061; 80307; 81001; 82805; 82962; 83036; 83605; 83735; 83880; 84443; 84484; 85025; 85379; 85610; 85730; 86141; 86704; 86706; 86708; 86803; 86850; 86900; 86901; 87040; 87081; 87340; 87501; 87804; 93005; 93017; 93306; 94640; 97163; 99152; 99291; G0378; J0153; J1815; J1885; J1956; J2250; Q9967

== ENCOUNTER 2020-04-29 03:06 | Emergency (ER) | payer MEDICAID ==
[~2020-04-29] VITALS: Ht 172.7 cm; Wt 56.7 kg
[~2020-04-29 03:06] MED LIST: ASPI-394 PO; FAMO20TA10 PO; FURO40TA4 PO; GABA100C9 PO; LEVO750T8 PO; MET25T PO; NICO14DI9 TD; OLAN1TAB7 PO; SACU1TAB PO
[2020-04-29 03:30] VITALS: BP 125/80
[2020-04-29] MEDS ORDERED: EPINEPHrine HCL 1 MG/1 ML AMP IM ONE (03:30)
[2020-04-29] MEDS ORDERED: methylPREDNISolone SOD SUCC 125 MG/2 ML VL IV ONE (03:30)
[2020-04-29] MEDS ORDERED: diphenhdrAMINE HCL 50 MG/1 ML VL IV ONE (03:30)
[2020-04-29] MEDS ORDERED: SODIUM CHLORIDE 0.9% 1,000 ML IV ONE (03:45)
[2020-04-29] MEDS ORDERED: EPINEPHrine HCL 1 MG/1 ML AMP SC ONE (03:45)
[2020-04-29 03:57] LABS: Basophils # (auto) 0.1 10 ^3/uL (0-0.2); Eosinophils # (auto) 0.2 10 ^3/uL (0-0.8); Eosinophils % (auto) 3.1 % (0.0-7.0); Hematocrit 41.3 % (41.0-53.0); Lymphocytes # (auto) 1.7 10 ^3/uL (0.4-5.4); Lymphocytes % (auto) 25.7 % (10.0-50.0); Mean Corpuscular Volume 94.1 fL (80.0-100.0); Monocytes # (auto) 0.6 10 ^3/uL (0-1.3); Monocytes % (auto) 8.2 % (0.0-12.0); Neutrophils # (auto) 4.2 10 ^3/uL (1.6-8.6); Nucleated Red Blood Cells % 0.1 %; Platelet Count (auto) 249 10^3/uL (140-450); Red Blood Cells 4.39 10^6/uL (4.5-5.90); Red Cell Distribution Width 14.3 % (11.8-14.3); White Blood Cell 6.8 10^3/uL (4.4-10.8)
[2020-04-29 04:16] LABS: Albumin 3.3 g/dL (3.4-5.0); Calcium 8.4 mg/dL (8.5-10.1); Potassium 3.9 mmol/L (3.5-5.1)
[2020-04-29 04:21] LABS: BUN/Creatinine Ratio 9.9; Bilirubin, Total 0.9 mg/dL (0.2-1.0); Total Protein 6.6 g/dL (6.4-8.2)
== END 2020-04-29 06:41 | disposition home or self-care (01) ==
LOC: ER 03:09
DX: T78.40XA Allergy, unspecified, initial encounter (principal); T78.3XXA Angioneurotic edema, initial encounter; E11.9 Type 2 diabetes mellitus without complications; E78.5 Hyperlipidemia, unspecified; I10 Essential (primary) hypertension; F17.210 Nicotine dependence, cigarettes, uncomplicated; Z79.899 Other long term (current) drug therapy; Z79.82 Long term (current) use of aspirin
CPT/HCPCS: 36415; 71045; 80053; 83735; 83880; 84484; 85025; 96361; 96372; 96374; 96375; 99285; J0171; J1200; J2930; J7030

== ENCOUNTER 2021-08-02 18:48 | Emergency (ER) | payer MEDICAID ==
[~2021-08-02] VITALS: Ht 165.1 cm; Wt 49.9 kg
[2021-08-02] MEDS ORDERED: ASPirin 81 mg TAB PO ONE (19:15)
[2021-08-03 00:28] VITALS: BP 110/72
== END 2021-08-03 05:41 | disposition home or self-care (01) ==
LOC: EDBD 18:48 → ER 18:52
DX: R07.89 Other chest pain (principal); F17.210 Nicotine dependence, cigarettes, uncomplicated; F12.10 Cannabis abuse, uncomplicated; F15.10 Other stimulant abuse, uncomplicated; I11.0 Hypertensive heart disease with heart failure; I50.9 Heart failure, unspecified; E11.9 Type 2 diabetes mellitus without complications; E78.5 Hyperlipidemia, unspecified; Z86.73 Personal history of transient ischemic attack (TIA), and cerebral infarction without residual deficits; Z88.0 Allergy status to penicillin
CPT/HCPCS: 93005

== ENCOUNTER 2023-02-27 19:43 | Emergency (ER) | payer MEDICAID ==
[~2023-02-27] VITALS: Ht 172.7 cm; Wt 54.5 kg
[~2023-02-27 19:43] MED LIST changes: +GABA-1308 PO; -GABA100C9 PO
[2023-02-27 20:12] VITALS: BP 116/81
[2023-02-27 21:15] LABS: Basophils # (auto) 0 10 ^3/uL (0-0.2); Basophils % (auto) 0.7 % (0.0-2.0); Eosinophils # (auto) 0.1 10 ^3/uL (0-0.8); Hematocrit 40.4 % (41.0-53.0); Hemoglobin 13.5 g/dL (13.5-17.5); Lymphocytes % (auto) 17.4 % (10.0-50.0); Mean Corpuscular Hgb Conc. 33.4 g/dL (32.0-36.0); Mean Corpuscular Volume 95.7 fL (80.0-100.0); Monocytes # (auto) 0.6 10 ^3/uL (0-1.3); Monocytes % (auto) 10.2 % (0.0-12.0); Neutrophils % (auto) 70.7 % (37.0-80.0); Red Blood Cells 4.22 10^6/uL (4.5-5.90); Red Cell Distribution Width 13.9 % (11.8-14.3); White Blood Cell 5.7 10^3/uL (4.4-10.8)
[2023-02-27 21:28] LABS: Albumin 2.8 g/dL (3.4-5.0); Calcium 8.1 mg/dL (8.5-10.1); Potassium 4.2 mmol/L (3.5-5.1)
[2023-02-27 21:36] LABS: BUN/Creatinine Ratio 14.8 (10.0-20.0); Bilirubin, Total 0.4 mg/dL (0.2-1.0); Total Protein 5.8 g/dL (6.4-8.2)
== END 2023-02-28 01:47 | disposition left against medical advice (07) ==
LOC: ER 19:43
DX: R22.43 Localized swelling, mass and lump, lower limb, bilateral (principal); Z53.21 Procedure and treatment not carried out due to patient leaving prior to being seen by health care provider
CPT/HCPCS: 36415; 36600; 80053; 82010; 82805; 83880; 84484; 85025; 93005

== ENCOUNTER 2023-03-31 09:48 | Inpatient (IN) | payer MEDICAID ==
[~2023-03-31] VITALS: Ht 167.6 cm; Wt 57.1 kg
[2023-03-31 10:42] LABS: Basophils # (auto) 0 10 ^3/uL (0-0.2); Basophils % (auto) 0.7 % (0.0-2.0); Eosinophils # (auto) 0.1 10 ^3/uL (0-0.8); Eosinophils % (auto) 1.5 % (0.0-7.0); Hematocrit 40.2 % (41.0-53.0); Hemoglobin 13.5 g/dL (13.5-17.5); Lymphocytes # (auto) 0.9 10 ^3/uL (0.4-5.4); Lymphocytes % (auto) 20.7 % (10.0-50.0); Mean Corpuscular Hemoglobin 31.7 pg (28.0-32.0); Mean Corpuscular Hgb Conc. 33.5 g/dL (32.0-36.0); Mean Corpuscular Volume 94.5 fL (80.0-100.0); Monocytes # (auto) 0.4 10 ^3/uL (0-1.3); Neutrophils # (auto) 3.1 10 ^3/uL (1.6-8.6); Neutrophils % (auto) 68.1 % (37.0-80.0); Nucleated Red Blood Cells % 0.1 %; Red Blood Cells 4.26 10^6/uL (4.5-5.90); Red Cell Distribution Width 14.3 % (11.8-14.3); White Blood Cell 4.6 10^3/uL (4.4-10.8)
[2023-03-31 10:54] VITALS: PULSE 93; RESP 16; O2SAT 100
[2023-03-31 11:00] LABS: Albumin 2.5 g/dL (3.4-5.0); Calcium 8.1 mg/dL (8.5-10.1); Potassium 3.5 mmol/L (3.5-5.1)
[2023-03-31 11:04] LABS: BUN/Creatinine Ratio 12.4 (10.0-20.0); Bilirubin, Total 0.6 mg/dL (0.2-1.0); Total Protein 5.3 g/dL (6.4-8.2)
[2023-03-31] MEDS ORDERED: DOCUSATE SOD 100 MG CAP PO PRN (13:00)
[2023-03-31] MEDS ORDERED: DEXTROSE (50%) 50ML SYRG IV PRN (13:00)
[2023-03-31] MEDS ORDERED: MORPHINE SULFATE INJ 2 MG/ml SYRG IV PRN (13:00)
[2023-03-31] MEDS ORDERED: NITROGLYCERIN 0.4 MG SL TAB SL PRN (13:00)
[2023-03-31] MEDS ORDERED: ACETAMINOPHEN 325 MG TAB PO PRN (13:00)
[2023-03-31] MEDS ORDERED: ONDANSETRON HCL 4 MG/2 ML VIAL IV PRN (13:00)
[2023-03-31] MEDS: SODIUM CHLOR 0.9% PF (SALINE LOCK) 10ML VIAL/SYR IV SCH ×2 (13:41→22:03)
[2023-03-31] MEDS ORDERED: LACTATED RINGER'S 1,000 ML IV ONE (13:45)
[2023-03-31 13:55] LABS: INR 1.14 (0.9-1.15)
[2023-03-31] MEDS ORDERED: LIDOCAINE 2% JELLY 11ml (GLYDO) UR ONE (15:30)
[2023-03-31] MEDS: InsuLIN REG 1unit/0.01ml Soln (100units/ml) SC SCH ×2 (17:00→22:19)
[2023-03-31 17:06] LABS: Urine Bacteria NONE SEEN /hpf (None Seen); Urine Blood Negative /uL (Negative); Urine Hyaline Cast FEW /lpf (0 - 2); Urine Specific Gravity 1.028 (1.001-1.035); Urine WBC <1 /hpf (0 - 3)
[2023-03-31] MEDS: ACCU-CHEK COMFORT CURVE STRIP VI SCH ×2 (17:21→22:07)
[2023-03-31 17:27] LABS: Alcohol, Urine < 3.0 mg/dL (0-10); Amphetamine Screen, Urine POSITIVE (NEGATIVE); Barbiturate Scree,Urine NEGATIVE (NEGATIVE); Benzodiazephine Screen, Urine NEGATIVE (NEGATIVE)
[2023-03-31 17:35] LABS: Cannabinoid Screen, Urine POSITIVE (NEGATIVE); Cocaine Screen, Urine NEGATIVE (NEGATIVE); Opiate Scree,Urine NEGATIVE (NEGATIVE); Phencyclidine Screen, Urine NEGATIVE (NEGATIVE)
[2023-03-31 19:30] VITALS: PULSE 105; RESP 24; O2SAT 99
[2023-03-31] MEDS: HYDROmorphone HCL 2 MG/ML VL/or syr IV PRN (21:46)
[2023-04-01] VITALS (8 sets, daily range): BP systolic 105–135; BP diastolic 74–100; PULSE 101–106; RESP 17–20; TEMP 97.6–97.9; O2SAT 94–99
[2023-04-01] MEDS: SODIUM CHLOR 0.9% PF (SALINE LOCK) 10ML VIAL/SYR IV SCH ×3 (05:47→22:12)
[2023-04-01] MEDS: ACCU-CHEK COMFORT CURVE STRIP VI SCH ×4 (05:51→22:09)
[2023-04-01] MEDS: InsuLIN REG 1unit/0.01ml Soln (100units/ml) SC SCH ×4 (05:55→22:20)
[2023-04-01] MEDS: HYDROmorphone HCL 2 MG/ML VL/or syr IV PRN (09:33)
[2023-04-01] MEDS: ENOXAPARIN SOD 40 MG/0.4 ML SYRINGE SC SCH (09:33)
[2023-04-01] MEDS ORDERED: FUROSEMIDE 40 MG/4 ML VIAL IV ONE (12:30)
[2023-04-01] MEDS ORDERED: POTASSIUM CHL 20 Meq TABLET PO ONE (13:30)
[2023-04-01] MEDS: HYDROcodone-ACET 5/325MG TAB PO PRN ×2 (16:57→22:08)
[2023-04-01] MEDS ORDERED: CARVEDILOL 3.125 MG TAB PO SCH (22:00)
[2023-04-01] MEDS ORDERED: SACUBITRIL-VALSARTAN 24mg/26mg TAB PO SCH (22:00)
[2023-04-01] MEDS: SACUBITRIL-VALSARTAN 24mg/26mg TAB PO SCH (22:08)
[2023-04-01] MEDS: CARVEDILOL 3.125 MG TAB PO SCH (22:09)
[2023-04-02] VITALS (8 sets, daily range): BP systolic 97–146; BP diastolic 68–116; PULSE 86–101; RESP 16–22; TEMP 97.2–98.6; O2SAT 96–100
[2023-04-02] MEDS: HYDROcodone-ACET 5/325MG TAB PO PRN ×3 (03:18→20:59)
[2023-04-02] MEDS: InsuLIN REG 1unit/0.01ml Soln (100units/ml) SC SCH ×4 (05:43→22:00)
[2023-04-02] MEDS: ACCU-CHEK COMFORT CURVE STRIP VI SCH ×3 (05:43→18:02)
[2023-04-02] MEDS: SODIUM CHLOR 0.9% PF (SALINE LOCK) 10ML VIAL/SYR IV SCH ×2 (05:43→15:02)
[2023-04-02] MEDS: ENOXAPARIN SOD 40 MG/0.4 ML SYRINGE SC SCH (09:53)
[2023-04-02] MEDS: FUROSEMIDE 40 MG/4 ML VIAL IV SCH (09:53)
[2023-04-02] MEDS: POTASSIUM CHL 20 Meq TABLET PO SCH (09:53)
[2023-04-02] MEDS: SACUBITRIL-VALSARTAN 24mg/26mg TAB PO SCH ×2 (09:54→22:00)
[2023-04-02] MEDS: CARVEDILOL 3.125 MG TAB PO SCH ×2 (09:54→22:00)
[2023-04-02] MEDS ORDERED: LORazepam 0.5 MG TAB PO ONE (10:15)
[2023-04-02] MEDS ORDERED: HALOPERIDOL LACTATE 5 MG/ML INJ VIAL IV ONE (10:15)
[2023-04-02 11:44] LABS: Basophils # (auto) 0.1 10 ^3/uL (0-0.2); Basophils % (auto) 0.9 % (0.0-2.0); Eosinophils # (auto) 0 10 ^3/uL (0-0.8); Eosinophils % (auto) 0.7 % (0.0-7.0); Hematocrit 45.1 % (41.0-53.0); Hemoglobin 15.2 g/dL (13.5-17.5); Lymphocytes # (auto) 0.8 10 ^3/uL (0.4-5.4); Lymphocytes % (auto) 13.6 % (10.0-50.0); Mean Corpuscular Hemoglobin 31.9 pg (28.0-32.0); Mean Corpuscular Hgb Conc. 33.6 g/dL (32.0-36.0); Mean Corpuscular Volume 94.8 fL (80.0-100.0); Monocytes # (auto) 0.5 10 ^3/uL (0-1.3); Monocytes % (auto) 8.7 % (0.0-12.0); Neutrophils # (auto) 4.3 10 ^3/uL (1.6-8.6); Neutrophils % (auto) 76.1 % (37.0-80.0); Nucleated Red Blood Cells % 0.1 %; Red Blood Cells 4.76 10^6/uL (4.5-5.90); Red Cell Distribution Width 14.3 % (11.8-14.3); White Blood Cell 5.7 10^3/uL (4.4-10.8)
[2023-04-02 12:04] LABS: Albumin 2.2 g/dL (3.4-5.0); Calcium 7.6 mg/dL (8.5-10.1); Potassium 4.1 mmol/L (3.5-5.1)
[2023-04-02 12:07] LABS: Bilirubin, Total 0.9 mg/dL (0.2-1.0); Total Protein 5.2 g/dL (6.4-8.2)
[2023-04-02] MEDS ORDERED: TUBERCULIN PPD 5 UNIT/0.1 ML ID ONE (13:45)
[2023-04-03] VITALS (10 sets, daily range): BP systolic 88–131; BP diastolic 63–94; PULSE 80–103; RESP 14–22; TEMP 94.7–98.6; O2SAT 93–99
[2023-04-03] MEDS: ACCU-CHEK COMFORT CURVE STRIP VI SCH ×5 (01:54→21:17)
[2023-04-03] MEDS: SODIUM CHLOR 0.9% PF (SALINE LOCK) 10ML VIAL/SYR IV SCH ×4 (01:55→21:18)
[2023-04-03] MEDS: LORazepam 0.5 MG TAB PO PRN ×3 (02:47→21:17)
[2023-04-03 05:38] LABS: Albumin 2.2 g/dL (3.4-5.0); Calcium 7.2 mg/dL (8.5-10.1); Potassium 3.7 mmol/L (3.5-5.1)
[2023-04-03 05:42] LABS: BUN/Creatinine Ratio 23.1 (10.0-20.0); Bilirubin, Total 0.6 mg/dL (0.2-1.0); Total Protein 5.3 g/dL (6.4-8.2)
[2023-04-03 05:55] LABS: Basophils # (auto) 0.1 10 ^3/uL (0-0.2); Basophils % (auto) 0.9 % (0.0-2.0); Eosinophils # (auto) 0.2 10 ^3/uL (0-0.8); Eosinophils % (auto) 2.6 % (0.0-7.0); Hematocrit 43.4 % (41.0-53.0); Hemoglobin 14.6 g/dL (13.5-17.5); Lymphocytes # (auto) 1.1 10 ^3/uL (0.4-5.4); Lymphocytes % (auto) 18.7 % (10.0-50.0); Mean Corpuscular Hgb Conc. 33.6 g/dL (32.0-36.0); Mean Corpuscular Volume 95.3 fL (80.0-100.0); Monocytes # (auto) 0.5 10 ^3/uL (0-1.3); Monocytes % (auto) 9.1 % (0.0-12.0); Neutrophils # (auto) 4.1 10 ^3/uL (1.6-8.6); Neutrophils % (auto) 68.7 % (37.0-80.0); Nucleated Red Blood Cells % 0.1 %; Red Blood Cells 4.55 10^6/uL (4.5-5.90)
[2023-04-03] MEDS: InsuLIN REG 1unit/0.01ml Soln (100units/ml) SC SCH ×4 (06:00→21:20)
[2023-04-03] MEDS: levoFLOXacin 500MG 100 ML IV SCH (09:01)
[2023-04-03] MEDS: FUROSEMIDE 40 MG/4 ML VIAL IV SCH (09:01)
[2023-04-03] MEDS: SACUBITRIL-VALSARTAN 24mg/26mg TAB PO SCH ×2 (09:02→21:17)
[2023-04-03] MEDS: ENOXAPARIN SOD 40 MG/0.4 ML SYRINGE SC SCH (09:02)
[2023-04-03] MEDS: HYDROcodone-ACET 5/325MG TAB PO PRN ×2 (09:02→22:42)
[2023-04-03] MEDS: POTASSIUM CHL 20 Meq TABLET PO SCH (09:03)
[2023-04-03] MEDS: CARVEDILOL 3.125 MG TAB PO SCH ×2 (09:03→21:16)
[2023-04-04] VITALS (11 sets, daily range): BP systolic 91–140; BP diastolic 57–91; PULSE 60–101; RESP 16–21; TEMP 97.5–98.7; O2SAT 91–100
[2023-04-04] MEDS: SODIUM CHLOR 0.9% PF (SALINE LOCK) 10ML VIAL/SYR IV SCH ×3 (06:44→23:00)
[2023-04-04] MEDS: ACCU-CHEK COMFORT CURVE STRIP VI SCH ×4 (06:44→23:00)
[2023-04-04] MEDS: InsuLIN REG 1unit/0.01ml Soln (100units/ml) SC SCH ×4 (07:00→23:30)
[2023-04-04] MEDS: SACUBITRIL-VALSARTAN 24mg/26mg TAB PO SCH (09:13)
[2023-04-04] MEDS: FUROSEMIDE 40 MG/4 ML VIAL IV SCH (09:13)
[2023-04-04] MEDS: levoFLOXacin 500MG 100 ML IV SCH (09:13)
[2023-04-04] MEDS: HYDROcodone-ACET 5/325MG TAB PO PRN (09:14)
[2023-04-04] MEDS: CARVEDILOL 3.125 MG TAB PO SCH ×2 (09:14→22:00)
[2023-04-04] MEDS: ENOXAPARIN SOD 40 MG/0.4 ML SYRINGE SC SCH (09:15)
[2023-04-04] MEDS: POTASSIUM CHL 20 Meq TABLET PO SCH (09:15)
[2023-04-04] MEDS ORDERED: DEXTROSE (50%) 50ML SYRG IV PRN (10:15)
[2023-04-04] MEDS ORDERED: TAMSULOSIN HYDROCHLORIDE 0.4 MG CAP PO ONE (13:45)
[2023-04-04] MEDS: Glucerna Carbsteady SHAKE Vanilla 8oz PO SCH ×2 (13:52→18:12)
[2023-04-04] MEDS: TAMSULOSIN HYDROCHLORIDE 0.4 MG CAP PO SCH (17:07)
[2023-04-05] VITALS (14 sets, daily range): BP systolic 91–125; BP diastolic 56–88; PULSE 85–100; RESP 16–20; TEMP 97.3–97.9; O2SAT 86–100
[2023-04-05] MEDS: SACUBITRIL-VALSARTAN 24mg/26mg TAB PO SCH ×3 (00:19→22:32)
[2023-04-05] MEDS: FAMOTIDINE 20 MG TAB PO SCH ×3 (00:20→22:33)
[2023-04-05] MEDS: LORazepam 0.5 MG TAB PO PRN ×3 (00:20→20:22)
[2023-04-05 06:49] LABS: Basophils # (auto) 0 10 ^3/uL (0-0.2); Basophils % (auto) 0.9 % (0.0-2.0); Eosinophils # (auto) 0.1 10 ^3/uL (0-0.8); Eosinophils % (auto) 1.9 % (0.0-7.0); Hematocrit 42.6 % (41.0-53.0); Hemoglobin 14.3 g/dL (13.5-17.5); Lymphocytes # (auto) 1.1 10 ^3/uL (0.4-5.4); Lymphocytes % (auto) 23.3 % (10.0-50.0); Mean Corpuscular Hemoglobin 31.8 pg (28.0-32.0); Mean Corpuscular Hgb Conc. 33.6 g/dL (32.0-36.0); Mean Corpuscular Volume 94.4 fL (80.0-100.0); Monocytes # (auto) 0.5 10 ^3/uL (0-1.3); Monocytes % (auto) 10.1 % (0.0-12.0); Neutrophils # (auto) 3.1 10 ^3/uL (1.6-8.6); Neutrophils % (auto) 63.8 % (37.0-80.0); Nucleated Red Blood Cells % 0.1 %; Red Blood Cells 4.51 10^6/uL (4.5-5.90); Red Cell Distribution Width 14.3 % (11.8-14.3); White Blood Cell 4.8 10^3/uL (4.4-10.8)
[2023-04-05 06:59] LABS: Albumin 2.6 g/dL (3.4-5.0); Potassium 4.6 mmol/L (3.5-5.1)
[2023-04-05 07:02] LABS: BUN/Creatinine Ratio 24.8 (10.0-20.0); Bilirubin, Total 0.7 mg/dL (0.2-1.0)
[2023-04-05] MEDS: POTASSIUM CHL 20 Meq TABLET PO SCH (10:30)
[2023-04-05] MEDS: ENOXAPARIN SOD 40 MG/0.4 ML SYRINGE SC SCH (10:30)
[2023-04-05] MEDS: CARVEDILOL 3.125 MG TAB PO SCH ×2 (10:32→22:33)
[2023-04-05] MEDS: FUROSEMIDE 40 MG/4 ML VIAL IV SCH ×2 (10:32→11:51)
[2023-04-05] MEDS: HYDROcodone-ACET 5/325MG TAB PO PRN ×3 (10:33→20:24)
[2023-04-05] MEDS: ACCU-CHEK COMFORT CURVE STRIP VI SCH ×4 (11:30→22:33)
[2023-04-05] MEDS: InsuLIN REG 1unit/0.01ml Soln (100units/ml) SC SCH ×4 (11:30→22:00)
[2023-04-05] MEDS: levoFLOXacin 500MG 100 ML IV SCH (11:46)
[2023-04-05] MEDS: Glucerna Carbsteady SHAKE Vanilla 8oz PO SCH ×3 (11:47→18:09)
[2023-04-05] MEDS: SODIUM CHLOR 0.9% PF (SALINE LOCK) 10ML VIAL/SYR IV SCH ×3 (12:33→22:41)
[2023-04-05] MEDS: INSULIN LANTUS (GLARGINE) 1 /0.01ml (100units/ml) SC SCH (12:43)
[2023-04-05] MEDS: ALBUTEROL SULF 2.5 MG/0.5ML(0.5%) NEB SOLN NEB PRN (16:13)
[2023-04-05] MEDS: TAMSULOSIN HYDROCHLORIDE 0.4 MG CAP PO SCH (17:52)
[2023-04-05] MEDS: Pro-Stat SF 30ml Vanilla PO SCH (18:10)
[2023-04-06] VITALS (8 sets, daily range): BP systolic 87–154; BP diastolic 59–71; PULSE 79–97; RESP 15–18; TEMP 97.9; O2SAT 84–100
[2023-04-06] MEDS: ALBUTEROL SULF 2.5 MG/0.5ML(0.5%) NEB SOLN NEB PRN (00:17)
[2023-04-06] MEDS: HYDROcodone-ACET 5/325MG TAB PO PRN ×3 (04:23→18:32)
[2023-04-06] MEDS: LORazepam 0.5 MG TAB PO PRN (04:23)
[2023-04-06 05:50] LABS: Albumin 2.3 g/dL (3.4-5.0); Calcium 7.9 mg/dL (8.5-10.1); Potassium 4.4 mmol/L (3.5-5.1)
[2023-04-06 05:55] LABS: BUN/Creatinine Ratio 34.4 (10.0-20.0); Bilirubin, Total 0.4 mg/dL (0.2-1.0)
[2023-04-06] MEDS: InsuLIN REG 1unit/0.01ml Soln (100units/ml) SC SCH ×3 (06:23→18:35)
[2023-04-06] MEDS: ACCU-CHEK COMFORT CURVE STRIP VI SCH ×3 (06:23→18:34)
[2023-04-06] MEDS: SODIUM CHLOR 0.9% PF (SALINE LOCK) 10ML VIAL/SYR IV SCH ×2 (06:23→15:21)
[2023-04-06] MEDS ORDERED: ALBUMIN 5% 250 ML IV ONE (06:30)
[2023-04-06] MEDS: INSULIN LANTUS (GLARGINE) 1 /0.01ml (100units/ml) SC SCH (06:51)
[2023-04-06] MEDS ORDERED: DEXTROSE (50%) 50ML SYRG IV PRN (09:45)
[2023-04-06] MEDS ORDERED: FUROSEMIDE 40 MG TAB PO SCH (10:00)
[2023-04-06] MEDS: CARVEDILOL 3.125 MG TAB PO SCH (10:00)
[2023-04-06] MEDS ORDERED: NICOTINE 7MG/24HR TOPICAL PATCH TD SCH (10:00)
[2023-04-06] MEDS: SACUBITRIL-VALSARTAN 24mg/26mg TAB PO SCH (10:00)
[2023-04-06] MEDS: levoFLOXacin 500MG 100 ML IV SCH (10:06)
[2023-04-06] MEDS: FAMOTIDINE 20 MG TAB PO SCH (10:07)
[2023-04-06] MEDS: POTASSIUM CHL 20 Meq TABLET PO SCH (10:08)
[2023-04-06] MEDS: ENOXAPARIN SOD 40 MG/0.4 ML SYRINGE SC SCH (10:09)
[2023-04-06] MEDS: Pro-Stat SF 30ml Vanilla PO SCH ×2 (10:11→18:33)
[2023-04-06] MEDS: Glucerna Carbsteady SHAKE Vanilla 8oz PO SCH ×3 (10:11→18:34)
[2023-04-06] MEDS: TAMSULOSIN HYDROCHLORIDE 0.4 MG CAP PO SCH (18:31)
[2023-04-06] MEDS ORDERED: InsuLIN REG 1unit/0.01ml Soln (100units/ml) SC SCH (22:00)
== END 2023-04-06 21:20 | disposition left against medical advice (07) | DRG 205 ==
LOC: EDBD 09:48 → ER 09:48 → TELE 13:21 → TELE-WESTW 22:41 → TELE-EAST 22:49 → TELE-WESTW 04-04 14:25
PROVIDERS: ADMIT Internal Medicine; ATTEND Student in an Organized Health Care Education/Training Program
DX: I42.7 Cardiomyopathy due to drug and external agent (principal); I50.23 Acute on chronic systolic (congestive) heart failure; E44.0 Moderate protein-calorie malnutrition; I11.0 Hypertensive heart disease with heart failure; E11.42 Type 2 diabetes mellitus with diabetic polyneuropathy; K21.9 Gastro-esophageal reflux disease without esophagitis; F17.210 Nicotine dependence, cigarettes, uncomplicated; F31.9 Bipolar disorder, unspecified; T43.655A Adverse effect of methamphetamines, initial encounter; I25.10 Atherosclerotic heart disease of native coronary artery without angina pectoris; R33.9 Retention of urine, unspecified; Z23 Encounter for immunization; Z53.29 Procedure and treatment not carried out because of patient's decision for other reasons; J44.9 Chronic obstructive pulmonary disease, unspecified; W18.39XA Other fall on same level, initial encounter; I08.1 Rheumatic disorders of both mitral and tricuspid valves; S01.01XA Laceration without foreign body of scalp, initial encounter; R55 Syncope and collapse; F15.11 Other stimulant abuse, in remission; R79.89 Other specified abnormal findings of blood chemistry; E11.65 Type 2 diabetes mellitus with hyperglycemia; Z59.00 Homelessness unspecified; Z68.21 Body mass index [BMI] 21.0-21.9, adult; Z88.0 Allergy status to penicillin; Z86.19 Personal history of other infectious and parasitic diseases; Z86.73 Personal history of transient ischemic attack (TIA), and cerebral infarction without residual deficits; Z88.8 Allergy status to other drugs, medicaments and biological substances; Y92.89 Other specified places as the place of occurrence of the external cause; Y93.89 Activity, other specified; Y99.8 Other external cause status
CPT/HCPCS: 36415; 36600; 70450; 71045; 71250; 72125; 72131; 76700; 80053; 80307; 81001; 82140; 82805; 82962; 83036; 83735; 83880; 84484; 85025; 85610; 86703; 87081; 93005; 93306; 94640; 96361; 96374; 96375; G0378; J1815; J1956